=== PATIENT | male | born 1945 | race Caucasian/White ===

== ENCOUNTER 2017-06-11 09:07 | Emergency (ER) | payer OTHER ==
[2017-06-11 09:11] VITALS: RESP 16
--- NOTE | 2017-06-11 09:24 | CPEKG ---
Heart Rate: 121 RR Interval: 496 QRSD Interval: 114 QT Interval: 340 QTC Interval: 483 QRS [place]: 107 T Wave [place]: -52 EKG Severity - ABNORMAL ECG - EKG Impression: ATRIAL FLUTTER/FIBRILLATION, A-RATE 244 EKG Impression: NONSPECIFIC INTRAVENTRICULAR CONDUCTION DELAY EKG Impression: LOW VOLTAGE IN FRONTAL LEADS EKG Impression: BORDERLINE ST DEPRESSION, ANTEROLATERAL LEADS Electronically Signed By: Al Jaquez 11-Jun-2017 14:50:02
--- NOTE | 2017-06-11 09:45 | EDPHY ---
H & P Smoking Status: Never smoked Time Seen by Provider: 06/11/17 09:28 HPI/ROS: CHIEF COMPLAINT: Tachycardia, atrial fibrillation HISTORY OF PRESENT ILLNESS: 72-year-old male presents to the emergency department complaining of tachycardia. The patient has a history of atrial fibrillation diagnosed 8 years ago. He has had [address] Kei Hogue, most recent was in 2013. He has been doing well over last few years until 1 month ago he had similar symptoms of tachycardia and feeling mildly short of breath. He was a doctor Mario Medina patient. He went over to [facility] and had an EKG done. He was given a dose of amiodarone and sent home. He came back for repeat EKG in the morning and he converted. States that he typically will convert on his own typically within about 24 hours. He feels frustrated that the same symptoms began 24 hours and have not resolved. He has had intermittent mild pain associated. He feels mildly short of "like I can't take a full deep breath of air ". No fevers or chills. No URI symptoms. He is looking for a new rn registry. 2 days ago he saw his primary care provider, Dr. Valorie Fregoso and had blood work obtained. REVIEW OF SYSTEMS: Constitutional: No fever, no chills. Eyes: No double or blurry vision. ENT: No sore throat. Respiratory: No cough, no shortness of breath. Cardiac: No chest pain. Gastrointestinal: No abdominal pain, vomiting or diarrhea. Genitourinary: No dysuria. Musculoskeletal: No neck or back pain. Skin: No rashes. Neurological: No headache. (Annette Cornejo) Past Medical/Surgical History: Atrial fibrillation with ablation x2 by Dr. Hogue most recently in 2013, hypothyroidism (Annette Cornejo) Social History: Single and lives in [place], retired. (Annette Cornejo) Physical Exam: General Appearance: Alert, no distress. Eyes: Pupils equal and round. Extraocular motions are all intact. ENT: Mouth: Mucous membranes moist. Respiratory: No wheezing, rhonchi, or rales, lungs are clear to auscultation. Cardiovascular: Regular rate and rhythm. Tachycardia with a rate of 115-120. Gastrointestinal: Abdomen is soft and nontender, no masses, no rebound or guarding, bowel sounds normal. Neurological: Alert and oriented x 3, cranial nerves II through XII grossly intact Skin: Warm and dry, no rashes. Musculoskeletal: Nontender to palpate along the cervical, thoracic or lumbar spine. Neck is supple. Extremities: Full range of motion and no peripheral edema. Psychiatric: Patient is oriented X 3, there is no agitation. (Annette Cornejo) Constitutional: Initial Vital Signs Temperature (C) 36.3 C 06/11/17 09:07 Heart Rate 119 H 06/11/17 09:07 Respiratory Rate 16 06/11/17 09:07 Blood Pressure 103/91 H 06/11/17 09:07 O2 Sat (%) 99 06/11/17 09:07 O2 Delivery Mode Room Air Allergies/Adverse Reactions: No Known Allergies Allergy (Unverified 06/11/17 09:12) Home Medications: Medication Instructions Recorded Amiodarone HCl 400 mg PO DAILY #14 tablet 06/11/17 Atorvastatin Calcium 06/11/17 CO Q-10 06/11/17 Eliquis 06/11/17 Levothyroxine 06/11/17 Medical Decision Making ED Course/Re-evaluation: I evaluated this patient and discussed the patient with Annette Sow. I have also discussed the patient with rn registry Dr. Jonathan Dickson. This patient has an atrial tachycardia. He will be started on amiodarone and discharged to be followed up as an outpatient with Dr. Kei Hogue who has ablated his atrial fibrillation in the past. After the adenosine his rhythm strip appears to be an atrial tachycardia as opposed to atrial fibrillation or flutter. (Al Jaquez) 72-year-old male with a history of atrial fibrillation with previous ablation most recently at 2013 presents with tachycardia. He had an EKG which reveals atrial fibrillation and atrial flutter with a rate of 120. The patient declined blood work. He states that he had blood work drawn by his primary care provider 2 days ago. He also declined cardioversion. He would like a new rn registry since Dr. Mario Medina is no longer the [facility]. He would like to go to [facility]. I spoke with Dr. Jonathan Dickson, on-call rn registry with [facility], who will come down to talk with the patient in the emergency department. The patient was kept on property assessment monitor. The case was discussed with Dr. Al Jaquez , secondary supervising physician, who did not directly evaluate the patient, however agrees with treatment and plan. Dr. Jonathan Dickson came to evaluate the patient. He was given adenosine IV administered by Dr. Jonathan Dickson which was able to slow his rhythm enough to show that this was atrial tachycardia. He thought that this was likely a rhythm that could be ablated by Dr. Kei Hogue. Dr. Jonathan Dickson recommended amiodarone 40 mg daily and he will see Dr. Kei Hogue in the office. The patient was comfortable with this plan. He was comfortable being discharged home. (Annette Cornejo) Differential Diagnosis: Including but not limited to atrial fibrillation, atrial flutter, atrial tachycardia, electrolyte abnormality (Annette Cornejo) - Data Points Medications Given: Discontinued Medications Adenosine (Adenosine) 6 mg IVP EDNOW ONE Stop: 06/11/17 10:41 Last Admin: 06/11/17 10:40 Dose: 6 mg Adenosine (Adenosine) 12 mg IVP EDNOW ONE Stop: 06/11/17 10:51 Last Admin: 06/11/17 10:50 Dose: 12 mg Departure - Departure Disposition: Home, Routine, Self-Care Clinical Impression: Tachycardia Condition: Good Instructions: Atrial Tachycardia (ED) Additional Instructions: Amiodarone 400mg daily. Follow up Dr. Kei Hogue. Return to the emergency department if you develop pain in your chest, difficulty breathing, or if you feel worse in any way. Referrals: Kei Hogue MD [Medical Doctor] - As per Instructions Prescriptions: Amiodarone HCl 400 mg PO DAILY #14 tablet
[2017-06-11] MEDS ORDERED: ADENOSINE 6 MG/2 ML VIAL IVP ONE ×2 (10:40→10:50)
[2017-06-11] MEDS ORDERED: ADENOSINE 6 MG/2 ML VIAL ONE (10:41)
[2017-06-11 11:58] VITALS: BP 120/101; PULSE 110; TEMP 97.9; O2SAT 96
--- NOTE | 2017-06-11 12:14 | GCON ---
[f rep st] CONSULTATION CARDIOLOGY CONSULTATION DATE OF CONSULTATION: 06/11/2017 INDICATIONS: Possible atrial fibrillation or flutter. HISTORY OF PRESENT ILLNESS: The patient is a pleasant 72-year-old male seen here in the Emergency [facility] part[facility] of [facility]. He is followed as an outpatient at the [facility] by Girma Trejo and Blaine Medina. His cardiac history is significant for paroxysmal atrial fibrillatio n with 2 prior ablations. He thinks he had the first one in 2012, and the second one in 2013. He no billy that over the years since then he has had occasional episodes of elevated heart rate, and recalls having been seen on one occasion with an elevated heart rate, and an EKG suggesting some form of a t achycardia. Apparently, this resolved spontaneously. About a month ago he had a similar presentatio n, was treated with a single dose of amiodarone with resolution. He continues to take Eliquis for th romboprophylaxis. For about the last 48-72 hours, he has had a sensation of an elevated heart rate. When he checks his pulse at home, his heart rates are in the 120s. This is associated with palpitat ions and a sensation of mild shortness of breath. On 1 or 2 occasions, he has had a twinge of left-s ided chest discomfort. He comes in Emergency Department today with these complaints. He is hemodyna mically stable. His initial electrocardiogram demonstrated a narrow complex tachycardia at 121 beats per minute. There appeared to be small atypical appearing P waves with a cycle length of about 240 beats per minute. He has low voltages. There is an incomplete right bundle branch block and nonspec ific ST and T changes. Here in the Emergency Department, he was administered adenosine. This result ed in slowing of his ventricular response. We did manage to achieve AV block. This identified what appears to be an atrial tachycardia. PAST MEDICAL HISTORY: 1. Paroxysmal atrial fibrillation as noted above. 2. History of hypothyroidism. 3. History of hyperlipidemia. ALLERGIES: None. CURRENT MEDICATIONS: Eliquis 5 mg twice daily, levothyroxine, CoQ10, and a statin drug. SOCIAL HISTORY: He is not . He has no children. 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 He does not smoke. He uses alcohol only rarely. He does like to exercise 3 or 4 times a week with no limiting symptoms. FAMILY HISTORY: Noncontributory. PAST SURGICAL HISTORY: Significant for elbow surgery. REVIEW OF SYSTEMS: A full 10-point review of systems was performed and is, otherwise, negative. LABORATORY DATA: His ECG and rhythm strips are described above. Labs are currently pending. IMPRESSION: The patient is a pleasant 72-year-old male who presents to the Emergency Department a hi story of 2 previous atrial fibrillation ablations, most recently in 2013. He presents now with recur rent palpitations and elevated heart rate with objective evidence that suggests an atrial tachycardia . He is currently stable and has minimal symptoms. Today, he and I discussed several options. We t alked about performing a cardioversion. We also talked about leaving him in this rhythm and simply h aving him see Dr. Hogue for followup. We also discussed antiarrhythmic therapy. After that discussion , he elected to begin antiarrhythmic therapy. PLAN: 1. He will start amiodarone 400 mg daily. 2. He will continue with systemic anticoagulation. 3. We will arrange for followup with Dr. Hogue for consideration of ablation of this arrhythmia versus ongoing medical therapy. /[id number]/MODL
== END 2017-06-11 11:58 | disposition home or self-care (01) ==
DX: R00.0 Tachycardia, unspecified (principal); Z79.01 Long term (current) use of anticoagulants
CPT/HCPCS: 93005; 96374; 99284; J0153

== ENCOUNTER 2017-06-17 10:43 | Day surgery (SDC) | payer OTHER ==
[2017-06-17] MEDS ORDERED: MIDAZOLAM 2 MG/2 ML VIAL IVP ONE ×2 (10:49→15:16)
[2017-06-17] MEDS ORDERED: NS 500 ML IV ONE ×2 (10:49→15:16)
[2017-06-17] MEDS ORDERED: fentaNYL 100 MCG/2 ML INJ IVP ONE ×2 (10:49→15:16)
[2017-06-17] MEDS ORDERED: ATROPINE SULFATE 1 MG/10 ML SYR IVP ONE ×2 (10:49→15:16)
[2017-06-17 11:26] LABS: INR 1.47 (0.83-1.16); PROTIME(PATIENT) 17.8 SEC (12.0-15.0)
[2017-06-17 11:27] LABS: APTT 35.4 SEC (23.0-38.0)
[2017-06-17 11:41] LABS: ANION GAP 10 mEq/L (8-16); CALCIUM 8.9 mg/dL (8.5-10.4); CARBON DIOXIDE 23 mEq/l (22-31); CHLORIDE 107 mEq/L (97-110); GLOMERULAR FILTRATION RATE > 60; GLUCOSE 92 mg/dL (70-100); SODIUM 140 mEq/L (134-144)
[2017-06-17] MEDS ORDERED: PROPOFOL 200 MG/20 ML VIAL ONE (12:10)
--- NOTE | 2017-06-17 12:18 | PDHPUP ---
History & Physical Update H&P update statement: This history and physical update is based on an assessment of the patient which was completed after admission or registration (within 24 hours), but prior to the surgery/procedure. H&P update: H&P reviewed & patient examined, no change in patient's condition since H&P completed
--- NOTE | 2017-06-17 12:22 | PDANEPAE ---
ANE History of Present Illness afib ANE Past Medical History - Pulmonary History Hx Oxygen in Use at Home: No Hx Sleep Apnea: No - Endocrine History Hx Diabetes: No Hypothyroid: Yes - Chronic Pain History Chronic Pain: No ANE Review of Systems Review of Systems: - Exercise capacity METS (RN): 4 METS ANE Patient History - Allergies Allergies/Adverse Reactions: No Known Allergies Allergy (Unverified 06/11/17 09:12) - Home Medications Home Medications: Atorvastatin Calcium 06/11/17 [Last Taken 06/16/17] CO Q-10 06/11/17 [Last Taken 06/16/17] Eliquis 06/11/17 [Last Taken 06/17/17] Levothyroxine 06/11/17 [Last Taken 06/17/17] - Smoking Hx Smoking Status: Never smoked ANE Labs/Vital Signs - Labs Result Diagrams: 06/17/17 11:00 - Vital Signs Height: 172.72 cm Weight: 70.307 kg ANE Physical Exam - Airway Neck exam: FROM Mallampati Score: Class 1 Mouth exam: normal dental/mouth exam - Pulmonary Pulmonary: no respiratory distress - Cardiovascular Cardiovascular: regular rate and rhythym - ASA Status ASA Status: II ANE Anesthesia Plan Total IV Anesthesia: Yes
--- NOTE | 2017-06-17 12:23 | POSTANESTH ---
Post Anesthetic Evaluation Cardiovascular Status: Normal, Stable Respiratory Status: Normal, Stable Level of Consciousness/Mental Status: Can Participate in Eval Pain Control: Adequate, Prn Tx Ordered Nausea/Vomiting Control: Adequate, Prn Tx Ordered Complications Possibly Related to Anesthesia: None Noted
--- NOTE | 2017-06-17 12:23 | CPEKG ---
Heart Rate: 73 RR Interval: 822 P-R Interval: 168 QRSD Interval: 120 QT Interval: 468 QTC Interval: 516 P [place]: 76 QRS [place]: 78 T Wave [place]: 37 EKG Severity - ABNORMAL ECG - EKG Impression: SINUS RHYTHM EKG Impression: NONSPECIFIC INTRAVENTRICULAR CONDUCTION DELAY EKG Impression: SINUS RHYTHM HAS REPLACED ATRIAL FLUTTER NOTED ON PRIOR ECG Electronically Signed By: Sean Palomares 20-Jun-2017 08:33:59
--- NOTE | 2017-06-17 13:50 | EPPROC ---
Electrophysiology Procedure Note: Procedure: CV Indication: Symptomatic AT Procedure: Pt sedated with help of anesthesia staff. Once sedated, pt underwent DCCV at 200J. Pt successfully converted to SR Conclusion: Successful CV Patient Problems: Problems Problem Status Onset Atrial fibrillation Acute
== END 2017-06-17 14:18 | disposition home or self-care (01) ==
LOC: FCATH 10:43 → EDSTATUS 10:44 → FCATH 14:18
PROVIDERS: ATTEND Internal Medicine Cardiovascular Disease
PROC: 5A2204Z Restoration of Cardiac Rhythm, Single (ICD-10-PCS; principal; 2017-06-17)
DX: I48.92 Unspecified atrial flutter (principal); I47.1 Supraventricular tachycardia; E78.5 Hyperlipidemia, unspecified; Q26.4 Anomalous pulmonary venous connection, unspecified; Z79.01 Long term (current) use of anticoagulants
CPT/HCPCS: J2704

== ENCOUNTER → 2017-08-18 | Outpatient (CLI) | payer OTHER ==
[~2017-08-18] MED LIST: IOPAMIDOL (ISOVUE 370) 100 ML BTL IV ONE
== END ==
LOC: FIMAGING 08:43
PROVIDERS: ATTEND Internal Medicine Cardiovascular Disease
DX: I48.91 Unspecified atrial fibrillation (principal); J98.09 Other diseases of bronchus, not elsewhere classified
CPT/HCPCS: 75572; Q9967

== ENCOUNTER 2017-09-14 07:06 | Observation (INO) | payer OTHER ==
[~2017-09-14 07:06] MED LIST changes: +ENOXAPARIN 80 MG/0.8 ML SYR SC SCH; -IOPAMIDOL (ISOVUE 370) 100 ML BTL IV ONE
[2017-09-14] MEDS ORDERED: NS 1,000 ML IV ONE (07:10)
--- NOTE | 2017-09-14 07:37 | CPEKG ---
Heart Rate: 62 RR Interval: 968 P-R Interval: 152 QRSD Interval: 118 QT Interval: 432 QTC Interval: 439 P [place]: 79 QRS [place]: 80 T Wave [place]: 58 EKG Severity - ABNORMAL ECG - EKG Impression: SINUS RHYTHM EKG Impression: ATRIAL PREMATURE COMPLEX EKG Impression: NONSPECIFIC INTRAVENTRICULAR CONDUCTION DELAY Electronically Signed By: Kei Hogue 14-Sep-2017 08:41:30
[2017-09-14 07:54] LABS: PLATELET COUNT 157 10^3/uL (150-400)
[2017-09-14 08:10] LABS: INR 1.07 (0.83-1.16); PROTIME(PATIENT) 14.1 SEC (12.0-15.0)
[2017-09-14] MEDS ORDERED: MIDAZOLAM 2 MG/2 ML VIAL IVP ONE (08:20)
[2017-09-14] MEDS ORDERED: HEPARIN 10,000 UNIT/10 ML MDV ONE ×2 (08:20→10:24)
[2017-09-14] MEDS ORDERED: LIDOCAINE 1% 300 MG/30 ML SDV ONE (08:20)
[2017-09-14] MEDS ORDERED: BUPIVACAINE 0.5% 30 ML SDV ONE (08:20)
--- NOTE | 2017-09-14 08:20 | PDANEPAE ---
ANE History of Present Illness ep ANE Past Medical History - Cardiovascular History Hx Hypertension: No Hx Arrhythmias: Yes Hx Chest Pain: No Hx Coronary Artery / Peripheral Vascular Disease: No Hx CHF / Valvular Disease: No Hx Palpitations: Yes - Pulmonary History Hx COPD: No Hx Asthma/Reactive Airway Disease: No Hx Recent Upper Respiratory Infection: No Hx Oxygen in Use at Home: No Hx Sleep Apnea: No - Neurologic History Hx Cerebrovascular Accident: No Hx Seizures: No Hx Dementia: No - Endocrine History Hx Diabetes: No Hypothyroid: No Hyperthyroid: No - Renal History Hx Renal Disorders: No - Liver History Hx Hepatic Disorders: No - Chronic Pain History Chronic Pain: No ANE Review of Systems Review of Systems: - Exercise capacity METS (RN): 4 METS ANE Patient History - Allergies Allergies/Adverse Reactions: No Known Allergies Allergy (Unverified 06/11/17 09:12) - Home Medications Home Medications: Apixaban [Eliquis] 5 mg PO BID 06/11/17 [Last Taken 09/12/17] Atorvastatin Calcium [Lipitor 10 mg (*)] 10 mg PO DAILY 06/11/17 [Last Taken 04/23] Herbals/Supplements -Info Only 1 ea PO DAILY 06/11/17 [Last Taken 09/13/17] Levothyroxine [Synthroid 50 mcg (*)] 50 mcg PO DAILY06 06/11/17 [Last Taken 04/23] Omeprazole [Prilosec 20 mg] 20 mg PO DAILY 09/14/17 [Last Taken 09/13/17] - NPO status NPO Status: no food or drink >8 hours - Smoking Hx Smoking Status: Never smoked ANE Labs/Vital Signs - Labs Result Diagrams: 09/14/17 07:40 09/14/17 07:40 - Vital Signs Height: 175 cm Weight: 71.2 kg ANE Physical Exam - Airway Mallampati Score: Class 2 Mouth exam: normal dental/mouth exam - Pulmonary Pulmonary: no respiratory distress - Cardiovascular Cardiovascular: irregularly irregular - ASA Status ASA Status: II ANE Anesthesia Plan Anesthesia Plan: general endotracheal anesthesia
[2017-09-14] MEDS ORDERED: ISOPROTERENOL HCL/D5W 0.2 MG/50 ML BAG IV ONE (08:21)
--- NOTE | 2017-09-14 08:42 | PDGENHP ---
History & Physical Chief Complaint: symptomatic at History of Present Illness: symptomatic at vs afl Relevant Physical Exam: s1s2 rrr. cta. ao 3 Cardiorespiratory Assessment: for left at vs afl ablation. Procedure discussed again with patient and friend.
[2017-09-14] MEDS ORDERED: DEXAMETHASONE 4 MG/ML VIAL ONE (08:52)
[2017-09-14] MEDS ORDERED: ONDANSETRON 4 MG/2 ML VIAL ONE (08:52)
[2017-09-14] MEDS ORDERED: ROCURONIUM 100 MG/10 ML VIAL ONE (08:52)
[2017-09-14] MEDS ORDERED: PROPOFOL 200 MG/20 ML VIAL ONE ×2 (08:54→08:59)
[2017-09-14] MEDS ORDERED: fentaNYL 100 MCG/2 ML INJ ONE (08:54)
[2017-09-14] MEDS ORDERED: HEPARIN/DEXTROSE 25,000 UNIT/500 ML BAG ONE (10:11)
[2017-09-14] MEDS ORDERED: PHENYLEPHRINE 10 MG/ML SDV ONE (10:41)
[2017-09-14] MEDS ORDERED: ROCURONIUM 50 MG/5 ML VIAL ONE ×2 (11:51→13:51)
[2017-09-14] MEDS ORDERED: SUGAMMADEX SODIUM 200 MG/2 ML VIAL IVP ONE (15:21)
[2017-09-14] MEDS ORDERED: PROTAMINE SULFATE 50 MG/5 ML VIAL IVP ONE (15:26)
[2017-09-14] MEDS ORDERED: OXYCODONE/APAP 5/325 TAB PO PRN (15:29)
[2017-09-14] MEDS ORDERED: ONDANSETRON 4 MG/2 ML VIAL IVP PRN ×2 (15:29→15:57)
[2017-09-14] MEDS ORDERED: ACETAMINOPHEN 325 MG TAB PO PRN (15:29)
[2017-09-14] MEDS ORDERED: ATROPINE SULFATE 1 MG/10 ML SYR ONE (15:32)
[2017-09-14] MEDS ORDERED: fentaNYL 100 MCG/2 ML INJ IVP PRN (15:57)
[2017-09-14] MEDS ORDERED: NALOXONE HCL 0.4 MG/ML INJ IVP PRN (15:57)
[2017-09-14] MEDS ORDERED: ALBUTEROL 3 ML DEYVIAL IH PRN (15:57)
--- NOTE | 2017-09-14 17:11 | EPPROC ---
Electrophysiology Procedure Note: ELECTROPHYSIOLOGIC STUDY AND CATHETER MEDIATED ABLATION Procedures performed: 84793-95 EP evaluation with RA/RV/LA pace/record, with arrhythmia induction 52000-94 EP evaluation with RA/RV pace record, insert/reposition catheter, with arrhythmia induction 19961 Atrial fibrillation ablation Second arrhythmia [id number] 3D mapping Intracardiac echocardiogram Transseptal puncture Fluoroscopy INDICATION: Prior CB and RF ablation for atrial fibrillation 2y post AFIB ablation had atrial tachycardia PROCEDURE: The patient arrived in the Electrophysiology Laboratory in the fasting state. The right groin, left groin and right infraclavicular area were prepped and draped in the usual sterile fashion. Anesthesiologist administered general anesthesia Dr. Guille Jha . All catheters were placed percutaneously using the Seldinger technique and advanced into position under fluoroscopic guidance. One #7 Dominican deflectable octapolar electrode catheter was placed in the His-bundle position via the left femoral vein (2mm spacing, IVC electrode for unipolar recordings). This catheter was placed in the coronary sinus after transseptal puncture. One #8 Dominican AcuNaV ultrasound catheter was placed in the left femoral vein and advanced into the right atrium. Halo catheter was placed along tricuspid annulus. One #4 [place] sheath was inserted into the left femoral artery via percutaneous technique and used for continuous arterial blood pressure monitoring and intermittent ACT determination. Programmed stimulation was performed from the right atrium, left atrium (CS) and right ventricle. There was no evidence of AV accessory pathway. Intracardiac echo evaluation of the left atrium and pulmonary veins was performed. There was common inferior pulmonic vein and distinct LSPV and RSPV. Baseline ACT was drawn and heparin bolus was administered and heparin drip was started prior to transseptal puncture. ACT was checked every 15 minutes and maintained in the range of 350-400 seconds. AT#1 CL 290-300 ms was induced. Entrainment mapping confirmed that this was not atrial flutter. Prior to mapping, AT#1 changed to atrial fibrillation and AF persisted despite 3 DCCV. An esophageal temperature probe (12 electrode, Circa) was placed by the anesthesiologist at the beginning of the procedure. Esophageal temperature was monitored continuously and RF ablation was interrupted if there was a temperature rise >0.5 C. The esophagus was closer to the common inferior pulmonic vein. One SL1 sheaths (8.5 Fr ) was inserted into the right femoral vein and advanced into the right atrium. Transseptal puncture was performed under intracardiac ultrasound, fluoroscopic and hemodynamic guidance placing the sheath into the left atrium. [place] RF needle (C0 curve) was used. The mean left atrial pressure was 12 mmHg. High resolution 3D map of LA and PV was done using Pentaray catheter. This confirmed that LSPV, RSPV and common inferior veins were isolated. RF ablation was done anterior to LPV and RPV targeting potential reentrant circuits. Catheter was withdrawn into the RA. DCCV maintained sinus rhythm. CT isthmus ablation was done and bidirectional conduction block was achieved. Programmed stimulation from RA induced AT#1, CL 300 ms. Ablation catheter was reintroduced into the left atrium via Agilis sheath. High resolution map of LA was done using Pentaray and ablation catheters. This demonstrated CCW reentry around mitral isthmus. We tried to ablate from rightward and leftward aspect of common inferior vein to mitral annulus but could not complete the line due to esophageal temperature rise within 5-10 seconds of initiation of ablation. We attempted to perform an anterior mitral isthmus line but were not able to complete this line due to enlarged LA and potential epicardial connection. ICE imaging was consistent with pre ablation imaging; moreover it showed no pericardial effusion or LA/PAULINA thrombus at the end of the procedure. The catheters were withdrawn. SL1 sheaths were changed to 9 Fr short sheaths. Protamine was given. The sheaths were removed and manual pressure was used for hemostasis. The patient was recovered from anesthesia. There were no complications. CONCLUSIONS: 1. Prior PV isolation for paroxysmal AFIB, veins remain isolated. 2. PV anatomy variant common inferior pulmonic vein. 3. Successful cavotricuspid isthmus ablation. 4. Left atrial tachycardia, mitral isthmus reentry. Unsuccessful ablation attempt due to esophageal temperature rise. 5. Ablation performed for AFIB anterior to left and right pulmonic veins. 6. No apparent complications. Patient Problems: Problems Problem Status Onset Atrial fibrillation Acute
--- NOTE | 2017-09-14 17:22 | CPEKG ---
Heart Rate: 85 RR Interval: 706 P-R Interval: 164 QRSD Interval: 124 QT Interval: 452 QTC Interval: 538 P [place]: 83 QRS [place]: 80 T Wave [place]: 57 EKG Severity - ABNORMAL ECG - EKG Impression: SINUS RHYTHM EKG Impression: NONSPECIFIC INTRAVENTRICULAR CONDUCTION DELAY Electronically Signed By: Yvon Givens 15-Sep-2017 06:40:24
[2017-09-14] MEDS ORDERED: KETOROLAC 30 MG/1 ML SDV ONE (17:38)
[2017-09-14] MEDS ORDERED: KETOROLAC 15 MG/1 ML SDV IVP ONE ×2 (17:45→18:30)
[2017-09-14] MEDS ORDERED: MEPERIDINE 25 MG/ML SYR IVP ONE (17:45)
[2017-09-14] MEDS ORDERED: ENOXAPARIN 80 MG/0.8 ML SYR SC SCH (21:30)
[2017-09-15] MEDS ORDERED: ENOXAPARIN 80 MG/0.8 ML SYR SC SCH (00:30)
[2017-09-15] MEDS ORDERED: LEVOTHYROXINE 50 MCG TAB PO SCH (06:00)
[2017-09-15 06:12] LABS: PLATELET COUNT 133 10^3/uL (150-400)
[2017-09-15 06:21] LABS: CREATINE KINASE 261 IU/L (0-224); INR 1.25 (0.83-1.16); PROTIME(PATIENT) 15.9 SEC (12.0-15.0)
[2017-09-15 08:35] VITALS: TEMP 98.6
--- NOTE | 2017-09-15 08:50 | CPEKG ---
Heart Rate: 64 RR Interval: 938 P-R Interval: 152 QRSD Interval: 124 QT Interval: 444 QTC Interval: 458 P [place]: 85 QRS [place]: 87 T Wave [place]: 72 EKG Severity - ABNORMAL ECG - EKG Impression: SINUS RHYTHM EKG Impression: NONSPECIFIC INTRAVENTRICULAR CONDUCTION DELAY Electronically Signed By: Kei Hogue 15-Sep-2017 08:50:39
[2017-09-15] MEDS ORDERED: ATORVASTATIN CALCIUM 10 MG TAB PO SCH (09:00)
[2017-09-15] MEDS ORDERED: PANTOPRAZOLE SODIUM 40 MG TAB PO SCH (09:00)
[2017-09-15] MEDS ORDERED: NON-FORMULARY NEW DRUG (Omeprazole [Prilosec 20 Mg] 20 MG) PO SCH (09:00)
[2017-09-15] MEDS ORDERED: APIXABAN 5 MG TAB PO SCH (09:30)
[2017-09-15] MEDS ORDERED: METOPROLOL SUCCINATE XR 25 MG TAB PO SCH (09:30)
--- NOTE | 2017-09-15 09:57 | ECHO ---
[email or web address] [address] [address] Main: [phone] Fax: Transthoracic Echocardiogram Name: SUDARSHAN CHOI MR#: [id number] Study Date: 09/15/2017 Study Time: 08:21 AM Date of : 1945 Age: 72 year(s) Height: 175.3 cm (69 in.) Weight: 70.76 kg (156 lb.) BSA: 1.86 m2 Gender: Male Examination: Echo Indication: F/U post EP study Image Quality: Contrast: Requested by: Kei Hogue BP: 110 mmHg/67 mmHg Heart Rate: Rhythm: Indication: F/U post EP study Procedure Staff Assembler For Puller Over Machine: Latonya Grant Reading Physician: Sean Palomares Requesting Provider: Conclusions: Mildly dilated left ventricle. Normal global systolic LV function. The ejection fraction is estimated to be 70-75 %. The left atrium is moderately to severely dilated. The right atrium is borderline dilated. Mild to moderate mitral regurgitation. The aortic valve is tri-leaflet. Mild aortic valve regurgitation is present. Mild to moderate tricuspid valve regurgitation. Trivial pulmonic valve regurgitation. Normal size ascending aorta measuring 3.6 cm. Measurements: Chambers Valvular Assessment AV/MV Valvular Assessment TV/PV Normal Normal Normal Name Value Range Name Value Range Name Value Range Ao Jo (MM): 3.6 cm (2.2 cm-3.7 AV meanP mmHg ( - ) TR Vmax: 3.00 mm/s ( - ) cm) ALEXANDRU (VTI): 2.3 cm ( - ) TR PGmax: 36 mmHg ( - ) IVSd (2D): 0.9 cm (0.6 cm-1.1 MV E Vmax: 0.85 m/s ( - ) syst. PAP: 41 mmHg ( - ) cm) MV A Vmax: 0.64 m/s ( - ) LVDd (2D): 6.0 cm (4.2 cm-5.9 MV E/A: 1.33 ( - ) cm) MV meanP mmHg ( - ) LVDs (2D): 3.9 cm (2.1 cm-4 cm) MVA (Vmax): 2.8 m/s ( - ) LVPWd (2D): 1.1 cm (0.6 cm-1 cm) LVOTd 2.1 cm 2.1 cm mm LVEF (2D): 64 (>=54 %) EF Range: 70-75 % Patient: SUDARSHAN CHOI Study Date: 09/15/2017 Page 1 of 2 08:21 AM Continued Measurements: Chambers Valvular Assessment AV/MV Valvular Assessment TV/PV Name Value Name Value Name Value LADs: 5.1 cm MV Annulus: 3.4 cm CVP (est.): 5 mmHg LADs Lon.6 cm MV E' Septal: 0.10 m/s LA Area: 23.8 cm2 MV E/E' Septal: 8.20 MV E/E' Lateral: 12.80 MV VTI: 23.40 cm MR Vena Contracta: 0.6 cm MR ERO: 0.140 cm2 MR PISA radius: 6 mm MR Reg. Volume: 25 ml MR Reg. Fraction: 12 % Additional Vessels Name Value Ao Ascendin.6 cm Findings: Left Ventricle: Mildly dilated left ventricle. No LV hypertrophy. Normal global systolic LV function. The ejection fraction is estimated to be 70-75 %. No regional wall motion abnormality. Right Ventricle: Normal size right ventricle. Left Atrium: The left atrium is moderately to severely dilated. Right Atrium: The right atrium is borderline dilated. Mitral Valve: There is mild bileaflet mitral valve prolapse. Mild to moderate mitral regurgitation. Aortic Valve: The aortic valve is normal in appearance and function. The aortic valve is tri-leaflet. Mild aortic valve regurgitation is present. Tricuspid Valve: The tricuspid valve is normal in appearance and function. Mild to moderate tricuspid valve regurgitation. The pulmonary artery pressure is mildly increased. Pulmonic Valve: The pulmonic valve is normal in appearance and function. Trivial pulmonic valve regurgitation. Aorta: The aorta is normal. Normal size sinus of valsalva. Normal size ascending aorta measuring 3.6 cm. Pericardium: Trivial anterior pericardial effusion. (No Signature Object) Patient: SUDARSHAN CHOI Study Date: 09/15/2017 Page 2 of 2 08:21 AM [id number]
--- NOTE | 2017-09-15 09:57 | ECHO ---
[email or web address] [address] [address] Main: [phone] Fax: Transthoracic Echocardiogram Name: SUDARSHAN CHOI MR#: [id number] Study Date: 09/14/2017 Study Time: 05:24 PM Date of : 1945 Age: 72 year(s) Height: 175.3 cm (69 in.) Weight: 70.76 kg (156 lb.) BSA: 1.86 m2 Gender: Male Examination: Limited Echo Indication: Chest pain post EP study Image Quality: Contrast: Requested by: Kei Hogue BP: 113 mmHg/71 mmHg Heart Rate: Rhythm: Indication: Chest pain post EP study Procedure Staff Military Nurse: Anentte Jeffries Physician: Sean Palomares Requesting Provider: Conclusions: there is mild to moderate MR noted mild AI moderate TR and physio PI. Mild MVP. Mild to mod LA enlargement. Measurements: Chambers Valvular Assessment AV/MV Valvular Assessment TV/PV Normal Normal Normal Name Value Range Name Value Range Name Value Range Continued Measurements: Findings: Left Ventricle: Normal global systolic LV function. Pericardium: Trivial pericardial effusion. (No Signature Object) Patient: SUDARSHAN CHOI Study Date: 09/14/2017 Page 1 of 1 05:24 PM [id number]
[2017-09-15 10:03] VITALS: BP 101/60; PULSE 72
[2017-09-15 10:04] VITALS: RESP 14; O2SAT 99
--- NOTE | 2017-09-15 12:20 | ASMTCASEMG ---
Living Arrangements What is your living Answers: Alone arrangement? Who do you live with? Type Of Residence What kind of residence do Answers: House you live in? Discharge Plan Comments Coordination Status Comments Notes: Patient is a 72yo single male who was admitted for a cardiac procedure. No therapies have been ordered. Patient will likely d/c independently. D/C needs TBD. CM will follow. Date Signed: 09/15/2017 12:20 PM Electronically Signed By:Agnes Beckford LCSW
--- NOTE | 2017-09-16 11:13 | GDS ---
[f rep st] DISCHARGE SUMMARY DISCHARGE DIAGNOSIS: 1. Paroxysmal atrial fibrillation, status post ablation. 2. Atrial flutter, status post ablation. 3. Atrial tachycardia. BRIEF HISTORY: This is a 72-year-old man with a history of prior atrial fibrillation with cryoballoon ablation in 2013 and RF ablation in 2014. He started experiencing increasing palpitations in April, and an EKG from the ER demonstrated atrial flutter and atrial tachycardia. He has an unusual pulmonary vein anatomical variant, a left common inferior vein. He has not had any atrial fibrillation seen since his ablation. He has taken amiodarone since the ER visit but does not want to continue this medication. HOSPITAL COURSE: Dr. Hogue performed successful cavotricuspid isthmus ablation. Prior pulmonary vein isolation veins were isolated. He had a left atrial mitral isthmus reentry tachycardia that ablation attempt was unsuccessful due to esophageal temperature increasing. Atrial fib ablation to the anterior to left and right pulmonary veins was done. The patient had some chest pain postprocedure. An echocardiogram demonstrated normal LV function without wall motion abnormalities or pericardial effusion. He reports that since that, he has felt well and has not had any further chest discomfort overnight. Telemetry demonstrate sinus rhythm with a few short SVT episodes. He denies any shortness of breath or cough. He denies any throat soreness. He denies abdominal pain or pain at his groin sites. TESTING DONE: Echocardiogram demonstrates ejection fraction of 70-75%. Left atrium is moderately to severely dilated. Mild to moderate MR. Mild aortic regurgitation. Mild to moderate TR, and no pericardial effusion. 12-lead EKG demonstrates sinus rhythm without acute ST-T wave changes. LAB WORK: WBC is 11.6, hemoglobin 13.1, hematocrit 39.5, platelets 133. Sodium 144, potassium 4.5, chloride 114, bicarb 20, BUN 33, creatinine 1.0, glucose 133 , CK 261, CK-MB fraction 12.3, CK-MB percent 4.7, troponin is 4.35. PHYSICAL EXAM: VITAL SIGNS: Blood pressure is 110/67, pulse is 66, respirations 18, temperature 37, O2 saturation on room air is 97%. GENERAL: He is alert and oriented, sitting up in bed, in no acute distress. CARDIAC: Regular rate and rhythm with a 2/6 systoloc murmur at the left sternal border. No rub. LUNGS: Clear to auscultation. ABDOMEN: Soft and nontender. Groin sites are without bleeding or hematoma. EXTREMITIES: Lower extremities are warm. No discoloration. No lower extremity edema. Bilateral +2 pedal pulses. DISCHARGE INSTRUCTIONS: Post-ablation instructions were reviewed with patient and he was given written instructions at the time of discharge. DISCHARGE MEDICATIONS: Please see discharge medication reconciliation. Of note , he was started on metoprolol succinate 25 mg, to take due to the left atrial tachycardia that was not able to be ablated. He was given guidelines as far as blood pressure and pulse rate on which to hold metoprolol, if needed. He was restarted on Eliquis, and he will continue with omeprazole for 6 weeks postablation. FOLLOWUP: He has a followup with Dr. Hogue on September 30 at 10:45. He has an appointment with Dr. Arredondo to establish with a general telegraph office route aide on September 23 at 9:15. /[id number]/MODL MTDD
--- NOTE | 2017-09-20 13:04 | ECHO ---
[email or web address] [address] [address] Main: [phone] Fax: Transesophageal Echocardiography Name: SUDARSHAN CHOI MR#: [id number] Study Date: 09/14/2017 Study Time: 09:03 AM Date of : 1945 Age: 72 year(s) Height: ( ) Weight: ( ) BSA: Gender: Male Examination: ANGELLA Indication: pre-ablation Image Quality: Adequate Contrast: I.V. dose of agitated saline Requested by: Kei Hogue Heart Rate: Rhythm: BP: / Procedure Staff Private Mortgage Banker Safe: Annette Adkins Reading Physician: Kei Hogue Requesting Provider: ANGELLA Exam Details Contrast: I.V. dose of agitated saline Conclusions: Normal global systolic LV function. An agitated saline study was performed and was negative for intracardiac shunting. Moderate mitral valve regurgitation is present. Moderate tricuspid regurgitation is present. Measurements: Chambers Valvular Assessment AV/MV Valvular Assessment TV/PV Normal Normal Normal Name Value Range Name Value Range Name Value Range TR Vmax: 2.43 mm/s ( - ) TR PGmax: 24 mmHg ( - ) Additional Measurements: Findings: Left Ventricle: Normal size left ventricle. Normal global systolic LV function. Left Atrium: Left atrial enlargement. An agitated saline study was performed and was negative for intracardiac shunting. No thrombus is noted in the left atrium. Left Atrial Appendage: No thrombus in left appendage. Patient: SUDARSHAN CHOI Study Date: 09/14/2017 Page 1 of 2 09:03 AM Right Atrium: Right atrial enlargement. 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 Moderate mitral valve regurgitation is present. Aortic Valve: The aortic valve is tri-leaflet and functions normally. Mild aortic valve regurgitation is present. Tricuspid Valve: The tricuspid valve is normal in appearance and function. Moderate tricuspid regurgitation is present. Pulmonic Valve: The pulmonic valve is normal in appearance. Mild pulmonic valve regurgitation is noted. Pericardium: No pericardial effusion. l1n (No Signature Object) Patient: SUDARSHAN CHOI Study Date: 09/14/2017 Page 2 of 2 09:03 AM [id number]
== END 2017-09-15 12:38 | disposition home or self-care (01) ==
LOC: FCATH 07:06 → F2N 15:29
PROVIDERS: ADMIT Internal Medicine Cardiovascular Disease; ATTEND Internal Medicine Cardiovascular Disease
DX: I48.0 Paroxysmal atrial fibrillation (principal); I48.92 Unspecified atrial flutter; I47.1 Supraventricular tachycardia; G89.18 Other acute postprocedural pain; R07.9 Chest pain, unspecified
CPT/HCPCS: 93005; 93306; 93308; 93312; 93613; 93621; 93623; 93655; 93656; C1731; C1732; C1759; C1766; C1893; J1100; J1644; J1885; J2250; J2370; J2405; J2704; J2720; J3010; J0461; J1650

== ENCOUNTER → 2017-09-27 | Outpatient (CLI) | payer OTHER | LOC: BMCIMAGING 09:32 | PROVIDERS: ATTEND Orthopaedic Surgery | DX: M17.11 Unilateral primary osteoarthritis, right knee (principal) ==

== ENCOUNTER → 2017-10-12 | Outpatient (CLI) | payer OTHER | LOC: FIMAGING 09:37 | PROVIDERS: ATTEND Orthopaedic Surgery | DX: M24.10 Other articular cartilage disorders, unspecified site (principal); M23.41 Loose body in knee, right knee; M23.211 Derangement of anterior horn of medial meniscus due to old tear or injury, right knee ==

== ENCOUNTER → 2017-12-07 | Outpatient (CLI) | payer OTHER | LOC: BHFA 13:00 | PROVIDERS: ATTEND Internal Medicine Cardiovascular Disease | DX: I49.8 Other specified cardiac arrhythmias (principal) ==

== ENCOUNTER 2017-12-27 10:49 | Day surgery (SDC) | payer OTHER ==
--- NOTE | 2017-12-27 06:39 | PDHPUP ---
History & Physical Update H&P update statement: This history and physical update is based on an assessment of the patient which was completed after admission or registration (within 24 hours), but prior to the surgery/procedure. H&P update: no change in patient's condition since H&P completed
[2017-12-27] MEDS ORDERED: LIDOCAINE 1% 2 ML INJ ID PRN (11:04)
[2017-12-27] MEDS ORDERED: ceFAZolin 2 GM/SWFI 2 GM/20 ML SYR IVP ONE (11:04)
[2017-12-27] MEDS ORDERED: LR 1,000 ML IV SCH (11:04)
[2017-12-27] MEDS ORDERED: LR 1,000 ML IV ONE (11:04)
[2017-12-27] MEDS ORDERED: BUPIVACAINE/EPI 0.5% 30 ML SDV ONE (11:55)
[2017-12-27] MEDS ORDERED: MIDAZOLAM 2 MG/2 ML VIAL IVP ONE (12:39)
--- NOTE | 2017-12-27 12:40 | PDANEPAE ---
ANE History of Present Illness r knee pain ANE Past Medical History - Cardiovascular History Hx Hypertension: No Hx Arrhythmias: Yes Hx Chest Pain: No Hx Coronary Artery / Peripheral Vascular Disease: No Hx CHF / Valvular Disease: No Hx Palpitations: Yes - Pulmonary History Hx COPD: No Hx Asthma/Reactive Airway Disease: No Hx Recent Upper Respiratory Infection: No Hx Oxygen in Use at Home: No Hx Sleep Apnea: No Sleep Apnea Screening Result - Last Documented: Negative - Neurologic History Hx Cerebrovascular Accident: No Hx Seizures: No Hx Dementia: No - Endocrine History Hx Diabetes: No - Renal History Hx Renal Disorders: No - Liver History Hx Hepatic Disorders: No - Neurological & Psychiatric Hx Hx Neurological and Psychiatric Disorders: No - Cancer History Hx Cancer: Yes Cancer History Comment: SKIN CA X1 - Congenital Disorder History Hx Congenital Disorders: No - GI History Hx Gastrointestinal Disorders: No - Other Health History Other Health History: NEG - Chronic Pain History Chronic Pain: Yes (KNEE) - Surgical History Prior Surgeries: ABLATION X3 (ATRIAL FIB & TACHYCARDIA). ELBOW R. TONSILLECTOMY ANE Review of Systems Review of Systems: - Exercise capacity METS (RN): 5 METS ANE Patient History - Allergies Allergies/Adverse Reactions: No Known Allergies Allergy (Unverified 06/11/17 09:12) - Home Medications Home Medications: Apixaban [Eliquis] 5 mg PO BID 06/11/17 [Last Taken 12/25/17] Atorvastatin Calcium [Lipitor 10 mg (*)] 10 mg PO DAILY 06/11/17 [Last Taken ] Herbals/Supplements -Info Only 1 ea PO DAILY 06/11/17 [Last Taken 12/23/17] Levothyroxine [Synthroid 50 mcg (*)] 50 mcg PO DAILY06 06/11/17 [Last Taken ] - NPO status NPO Since - Liquids (Date): 12/27/17 NPO Since - Liquids (Time): 07:30 NPO Since - Solids (Date): 12/27/17 NPO Since - Solids (Time): 22:00 - Smoking Hx Smoking Status: Never smoked - Family Anes Hx Family Hx Anesthesia Complications: NEG ANE Labs/Vital Signs - Vital Signs Blood Pressure: 135/79 Heart Rate: 76 Respiratory Rate: 15 O2 Sat (%): 96 Height: 175.26 cm Weight: 71.668 kg ANE Physical Exam - Airway Neck exam: FROM Mallampati Score: Class 2 Mouth exam: normal dental/mouth exam - Pulmonary Pulmonary: no respiratory distress - Cardiovascular Cardiovascular: regular rate and rhythym - ASA Status ASA Status: II ANE Anesthesia Plan Anesthesia Plan: GA w LMA
[2017-12-27] MEDS ORDERED: fentaNYL 100 MCG/2 ML INJ ONE (12:44)
[2017-12-27] MEDS ORDERED: PROPOFOL 200 MG/20 ML VIAL ONE ×2 (12:44)
[2017-12-27] MEDS ORDERED: ONDANSETRON 4 MG/2 ML VIAL IVP PRN (13:46)
[2017-12-27] MEDS ORDERED: PROMETHAZINE HCL 25 MG/ML INJ IVP PRN (13:46)
[2017-12-27] MEDS ORDERED: HYDROCODONE/APAP 5/325 TAB PO PRN (13:46)
[2017-12-27] MEDS ORDERED: fentaNYL 100 MCG/2 ML INJ IVP PRN (13:46)
[2017-12-27] MEDS ORDERED: HYDROmorphONE/DILAUDID 2 MG/ML INJ IVP PRN (13:46)
[2017-12-27] MEDS ORDERED: NALOXONE HCL 0.4 MG/ML INJ IVP PRN (13:46)
[2017-12-27] MEDS ORDERED: epHEDrine SULFATE 10 MG/ML SYR ONE (13:54)
[2017-12-27] MEDS ORDERED: ONDANSETRON 4 MG/2 ML VIAL ONE (13:54)
[2017-12-27] MEDS ORDERED: DEXAMETHASONE 4 MG/ML VIAL ONE (13:54)
[2017-12-27] MEDS ORDERED: PHENYLEPHRINE HCL 100 MCG/ML SYR ONE (13:54)
[2017-12-27 16:26] VITALS: BP 124/82
--- NOTE | 2017-12-30 06:53 | GOP ---
[f rep st] OPERATIVE REPORT DATE OF OPERATION: 12/27/2017 SURGEON: Edin Barrientos MD HEAD OPERATOR SULFIDE: Jak Shetty, HEMATOLOGIST, FUEL CELL SYSTEMS ENGINEER, surgical scheduler who was a medical necessity for the entiret y of the case. 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 PROCEDURE PERFORMED: 1. Right knee arthroscopy with partial lateral meniscectomy. 2. Lateral femoral chondroplasty. FINDINGS: SPECIMENS: To pathology, none. INDICATIONS: The patient is a 72-year-old gentleman who has persistent catching pain and discomfort across his right knee. Clinical and radiographic features are consistent with meniscal injury. Give n the persistent nature of his symptoms, I recommended operative intervention. I have outlined the s urgical procedure, risks, benefits, and alternatives. He wishes to proceed. Written consent was sig nolan and placed in patient's chart. DESCRIPTION OF PROCEDURE: The patient was identified in the preanesthesia area. The right knee alley rly demarcated as the operative site with indelible marker. He was given 2 g of Ancef intravenously en route to the operative suite. In the OR, general endotracheal anesthesia was administered. Atten tion was turned to the right knee, which was sterilely prepped and draped in usual fashion. Appropri ate time-out procedure had been carried out. Standard arthroscopic portal sites were created and valeria gnostic arthroscopy ensued. The suprapatellar pouch was devoid of any loose foreign debris. The art icular surface of the patella and trochlea demonstrated grade 1 softening only. The medial and later al gutters were free of any loose or foreign debris. Medial compartment was entered. The articular surface of the femur and tibia demonstrated grade 1 softening only. There was mild degenerative roug miranda into the inner margin of the meniscus, but no focal tearing. The ACL demonstrated slight frayin g across the anterior surface, was likewise debrided, was otherwise intact. The lateral compartment was entered. There was grade 3 and 4 chondral change across the tibial weightbearing surface. This area was debrided with arthroscopic shaver to a clean and stable edge. There was gross degenerative tearing through the mid body and posterior horn of the lateral meniscus. This was debrided with arth roscopic instrumentation and all loose particulate debris withdrawn. Approximately 40% of the inner to outer diameter of the posterior half of the lateral meniscus was withdrawn. The tibial articular surface demonstrated grade 1 softening. Minimal debridement was carried out. The arthroscopic equipment was withdrawn. The portal sites closed using 4-0 nylon suture. The knee instilled with 20 cc of 0.5% Marcaine with epinephrine. A sterile compressive dressing was applied. The patient was awakened, extubated, taken to recovery room in good stable condition. TOTAL TOURNIQUET TIME: None. COMPLICATIONS: None. DISPOSITION: To recovery room, then home. /[id number]/MODL
== END 2017-12-27 16:28 | disposition home or self-care (01) ==
LOC: FSGY 10:49
PROVIDERS: ATTEND Orthopaedic Surgery
PROC: 0SBC4ZZ Excision of Right Knee Joint, Percutaneous Endoscopic Approach (ICD-10-PCS; principal; 2017-12-27 12:30)
DX: M23.91 Unspecified internal derangement of right knee (principal); M94.261 Chondromalacia, right knee; E03.9 Hypothyroidism, unspecified; N40.0 Benign prostatic hyperplasia without lower urinary tract symptoms
CPT/HCPCS: J0171; J0690; J1100; J2250; J2370; J2405; J2704; J3010

== ENCOUNTER 2018-07-01 09:59 | Day surgery (SDC) | payer OTHER ==
[2018-07-01] MEDS ORDERED: NS 500 ML IV ONE (10:03)
[2018-07-01] MEDS ORDERED: ATROPINE SULFATE 1 MG/10 ML SYR IVP ONE (10:03)
[2018-07-01 10:44] LABS: INR 1.49 (0.83-1.16); PROTIME(PATIENT) 18.2 SEC (12.0-15.0)
--- NOTE | 2018-07-01 11:34 | PDANEPAE ---
ANE History of Present Illness here for CV ANE Past Medical History - Cardiovascular History Hx Hypertension: No Hx Arrhythmias: Yes Hx Chest Pain: No Hx Coronary Artery / Peripheral Vascular Disease: No Hx CHF / Valvular Disease: No Hx Palpitations: Yes - Pulmonary History Hx COPD: No Hx Asthma/Reactive Airway Disease: No Hx Recent Upper Respiratory Infection: No Hx Oxygen in Use at Home: No Hx Sleep Apnea: No - Neurologic History Hx Cerebrovascular Accident: No Hx Seizures: No Hx Dementia: No - Endocrine History Hx Diabetes: No - Renal History Hx Renal Disorders: No - Liver History Hx Hepatic Disorders: No - Neurological & Psychiatric Hx Hx Neurological and Psychiatric Disorders: No - Cancer History Hx Cancer: Yes Cancer History Comment: SKIN CA X1 - Congenital Disorder History Hx Congenital Disorders: No - GI History Hx Gastrointestinal Disorders: No - Other Health History Other Health History: NEG - Chronic Pain History Chronic Pain: Yes (KNEE) - Surgical History Prior Surgeries: ABLATION X3 (ATRIAL FIB & TACHYCARDIA). ELBOW R. TONSILLECTOMY ANE Review of Systems Review of systems is: negative Review of Systems: - Exercise capacity Exercise capacity: >=4 METS ANE Patient History - Allergies Allergies/Adverse Reactions: No Known Allergies Allergy (Unverified 06/11/17 09:12) - Home Medications Home medications: home medication list seen and reviewed Home Medications: Apixaban [Eliquis] 5 mg PO BID 06/11/17 [Last Taken 12/25/17] Atorvastatin Calcium [Lipitor 10 mg (*)] 10 mg PO DAILY 06/11/17 [Last Taken ] Herbals/Supplements -Info Only 1 ea PO DAILY 06/11/17 [Last Taken 12/23/17] Levothyroxine [Synthroid 50 mcg (*)] 50 mcg PO DAILY06 06/11/17 [Last Taken ] - NPO status NPO Status: no food or drink >8 hours - Smoking Hx Smoking Status: Never smoked - Family Anes Hx Family Hx Anesthesia Complications: NEG ANE Labs/Vital Signs - Labs Result Diagrams: 07/01/18 10:16 - Vital Signs Vital Signs: reviewed preoperatively; see RN documention for details ANE Physical Exam - Airway Neck exam: FROM Mallampati Score: Class 1 - Pulmonary Pulmonary: no respiratory distress - Cardiovascular Cardiovascular: regular rate and rhythym - ASA Status ASA Status: II ANE Anesthesia Plan Anesthesia Plan: GA with mask
[2018-07-01] MEDS ORDERED: PROPOFOL 200 MG/20 ML VIAL ONE (11:59)
--- NOTE | 2018-07-01 12:05 | PDHPUP ---
History & Physical Update H&P update statement: This history and physical update is based on an assessment of the patient which was completed after admission or registration (within 24 hours), but prior to the surgery/procedure. H&P update: H&P reviewed & patient examined, no change in patient's condition since H&P completed (Reviewed office note dated 06/30/2018)
--- NOTE | 2018-07-01 12:34 | PDTEE1 ---
ANGELLA Cardioversion Procedure Procedure: electrical cardioversion Indications: other (AT) Procedural Details: Pads were placed in anterior-posterior position. Sedation was provided by the anesthesia service. ANGELLA was not performed as the patient has not missed any Eliquis doses for greater than 4 weeks. Synchronized cardioversion attempt #1: 200J Results: normal sinus rhythm Conclusions: successful cardioversion Patient Problems: Problems Problem Status Onset Atrial fibrillation Acute
--- NOTE | 2018-07-02 10:03 | CPEKG ---
Test Reason : OPEN Blood Pressure : / mmHG Vent. Rate : 116 BPM Atrial Rate : 115 BPM P-R Int : 119 ms QRS Dur : 113 ms QT Int : 343 ms P-R-T Axes : 002 097 042 degrees QTc Int : 477 ms Sinus tachycardia Ventricular premature complex Minimal ST depression, diffuse leads Borderline prolonged QT interval Confirmed by Sean Palomares ([id number]) on 07/02/2018 10:02:58 AM Referred By: Confirmed By:Sean Palomares
--- NOTE | 2018-07-02 10:04 | CPEKG ---
Test Reason : OPEN Blood Pressure : / mmHG Vent. Rate : 073 BPM Atrial Rate : 075 BPM P-R Int : 153 ms QRS Dur : 116 ms QT Int : 420 ms P-R-T Axes : 076 064 034 degrees QTc Int : 463 ms Sinus rhythm Atrial premature complex Nonspecific intraventricular conduction delay Confirmed by Sean Palomares ([id number]) on 07/02/2018 10:04:08 AM Referred By: Confirmed By:Sean Palomares
== END 2018-07-01 13:34 | disposition home or self-care (01) ==
LOC: FCATH 09:59
PROVIDERS: ATTEND Internal Medicine Cardiovascular Disease
PROC: 5A2204Z Restoration of Cardiac Rhythm, Single (ICD-10-PCS; principal; 2018-07-01)
DX: I47.2 Ventricular tachycardia (principal); I48.91 Unspecified atrial fibrillation; I34.0 Nonrheumatic mitral (valve) insufficiency; Z79.01 Long term (current) use of anticoagulants
CPT/HCPCS: J2704

== ENCOUNTER → 2018-07-06 | Outpatient (CLI) | payer OTHER | LOC: BHFA 11:00 | PROVIDERS: ATTEND Nurse Practitioner Adult Health | DX: I48.91 Unspecified atrial fibrillation (principal); I47.1 Supraventricular tachycardia; I34.0 Nonrheumatic mitral (valve) insufficiency ==

== ENCOUNTER → 2018-08-19 | Outpatient (CLI) | payer OTHER | LOC: BHFA 08:30 | PROVIDERS: ATTEND Internal Medicine Cardiovascular Disease | DX: I48.91 Unspecified atrial fibrillation (principal); I34.0 Nonrheumatic mitral (valve) insufficiency ==

== ENCOUNTER 2019-01-05 09:34 | Day surgery (SDC) | payer OTHER ==
[2019-01-05] MEDS ORDERED: MIDAZOLAM 2 MG/2 ML VIAL IVP ONE (09:38)
[2019-01-05] MEDS ORDERED: fentaNYL 100 MCG/2 ML INJ IVP ONE (09:38)
[2019-01-05] MEDS ORDERED: ATROPINE SULFATE 1 MG/10 ML SYR IVP ONE (09:38)
[2019-01-05] MEDS ORDERED: NS 500 ML IV ONE (09:38)
[2019-01-05] MEDS ORDERED: BENZOCAINE UNIT DOSE SPRAY HURRICAINE MM ONE (09:38)
[2019-01-05 10:13] LABS: INR 1.48 (0.83-1.16); PROTIME(PATIENT) 17.3 SEC (12.0-15.0)
--- NOTE | 2019-01-05 10:19 | PDGENHP ---
History & Physical Chief Complaint: persistent atrial tachycardia History of Present Illness: persistent AT. the patient reports that he's been taking eliquis BID without interruption for >6 weeks. Relevant Physical Exam: A+Ox4, regular tachycardia, no MRG, CTAB, no focal deficits Cardiorespiratory Assessment: persistent AT -> DC cardioversion
[2019-01-05] MEDS ORDERED: PROPOFOL 200 MG/20 ML VIAL ONE (10:36)
[2019-01-05] MEDS ORDERED: LIDOCAINE 2% 2 ML INJ ONE (10:37)
--- NOTE | 2019-01-05 10:39 | PDANEPAE ---
ANE History of Present Illness cv ANE Past Medical History - Cardiovascular History Hx Hypertension: No Hx Arrhythmias: Yes Hx Chest Pain: No Hx Coronary Artery / Peripheral Vascular Disease: No Hx CHF / Valvular Disease: No Hx Palpitations: Yes - Pulmonary History Hx COPD: No Hx Asthma/Reactive Airway Disease: No Hx Recent Upper Respiratory Infection: No Hx Oxygen in Use at Home: No Hx Sleep Apnea: No - Neurologic History Hx Cerebrovascular Accident: No Hx Seizures: No Hx Dementia: No - Endocrine History Hx Diabetes: No Hypothyroid: No Hyperthyroid: No Obesity: no - Renal History Hx Renal Disorders: No - Liver History Hx Hepatic Disorders: No - Neurological & Psychiatric Hx Hx Neurological and Psychiatric Disorders: No - Cancer History Hx Cancer: Yes Cancer History Comment: SKIN CA X1 - Congenital Disorder History Hx Congenital Disorders: No - GI History GERD: no Hx Gastrointestinal Disorders: No - Other Health History Other Health History: NEG - Chronic Pain History Chronic Pain: Yes (KNEE) - Surgical History Prior Surgeries: ABLATION X3 (ATRIAL FIB & TACHYCARDIA). ELBOW R. TONSILLECTOMY ANE Review of Systems Review of Systems: - Exercise capacity Exercise capacity: >=4 METS ANE Patient History - Allergies Allergies/Adverse Reactions: No Known Allergies Allergy (Unverified 06/11/17 09:12) - Home Medications Home Medications: Apixaban [Eliquis] 5 mg PO BID 06/11/17 [Last Taken 01/05/19 07:00] Atorvastatin Calcium [Lipitor 10 mg (*)] 10 mg PO DAILY 06/11/17 [Last Taken 09/24] Herbals/Supplements -Info Only 1 ea PO DAILY 06/11/17 [Last Taken 01/04/19] Levothyroxine [Synthroid 50 mcg (*)] 50 mcg PO DAILY06 06/11/17 [Last Taken 10/25] Tamsulosin HCl [Flomax 0.4 MG (*)] 0.4 mg PO HS 01/05/19 [Last Taken 01/04/19] - NPO status NPO Status: no food or drink >8 hours - Anes Hx Anes Hx: no prior problems - Smoking Hx Smoking Status: Never smoked - Family Anes Hx Family Hx Anesthesia Complications: NEG ANE Labs/Vital Signs - Labs Result Diagrams: 01/05/19 09:50 - Vital Signs Height: 175.26 cm Weight: 71.668 kg ANE Physical Exam - Airway Mallampati Score: Class 2 Mouth exam: normal dental/mouth exam - Pulmonary Pulmonary: no respiratory distress - Cardiovascular Cardiovascular: irregularly irregular - ASA Status ASA Status: II ANE Anesthesia Plan Anesthesia Plan: GA with mask Total IV Anesthesia: Yes
[2019-01-05] MEDS ORDERED: NALOXONE HCL 0.4 MG/ML INJ IVP PRN (10:52)
--- NOTE | 2019-01-05 10:52 | EPPROC ---
Electrophysiology Procedure Note: Date: 01/05/2019 Chisel Trimmer: Rj Chand MD Procedures: DC cardioversion -[id number] Indications: 73-year-old male with persistent atrial tachycardia. He has been on Eliquis without interruption for the last 6 weeks. Techniques: Following informed consent, the patient was brought to the procedure area in a fasting nonsedated state, in atrial tachycardia rhythm. Defibrillation pads were applied in anteroposterior orientation to the chest. IV sedation was provided by the anesthesiology service. After ensuring adequate sedation, a single 200 joule biphasic R-wave synchronized transcutaneous shock was delivered, resulting in termination of atrial tachycardia and resumption of sinus rhythm with PACs and runs of nonsustained atrial tachycardia. There was no significant post conversion pause. The patient tolerated the procedure well. EBL: None Complications: None Assessment: Successful cardioversion of persistent atrial tachycardia Plan: DC to home Continue Eliquis without interruption for at least the next month Patient Problems: Problems Problem Status Onset Atrial fibrillation Acute
== END 2019-01-05 12:04 | disposition home or self-care (01) ==
LOC: FCATH 09:34
PROVIDERS: ATTEND Internal Medicine Cardiovascular Disease
PROC: 5A2204Z Restoration of Cardiac Rhythm, Single (ICD-10-PCS; principal; 2019-01-05)
DX: I47.1 Supraventricular tachycardia (principal); I48.91 Unspecified atrial fibrillation; I34.0 Nonrheumatic mitral (valve) insufficiency; E03.9 Hypothyroidism, unspecified; Z79.01 Long term (current) use of anticoagulants
CPT/HCPCS: J2704